=== PATIENT | male | born 1955 | race Caucasian/White ===

== ENCOUNTER 2021-01-14 12:35 | Emergency (ER) | payer OTHER ==
[2021-01-14 12:47] VITALS: BP 156/100; PULSE 83; RESP 20; TEMP 98
[2021-01-14] MEDS ORDERED: LIDOCAINE 1% INJ 10MG/ML (20 ML MDV) SQ ONE (12:56)
[2021-01-14] MEDS ORDERED: BACITRACIN OINT 1 EACH PACKET TOPICAL ONE (13:28)
[2021-01-14] MEDS ORDERED: DIPH,PERTUS(ACELL)TETVAC-LF 0.5 ML VIAL IM ONE (13:28)
--- NOTE | 2021-01-14 13:31 | ED ---
Skin/Abscess/FB HPI - General Chief complaint: Skin/Abscess/Foreign Body Stated complaint: fish hook through finger Time Seen by Provider: 01/14/21 12:56 Source: patient, RN notes reviewed Mode of arrival: ambulatory Limitations: no limitations - History of Present Illness Initial comments: 65-year-old male present emergency Department with chief complaint of fishhook in his right hand third digit. Patient states his tetanus is not up-to-date. Patient offers no complaints. Patient states he was fishing when he caught a fish and states that the patient jumped causing her to go into his finger. - Related Data Allergies Allergy/AdvReac Type Severity Reaction Status Date / Time No Known Allergies Allergy Verified 01/14/21 12:47 Review of Systems ROS Statement: Those systems with pertinent positive or pertinent negative responses have been documented in the HPI. ROS Other: All systems not noted in ROS Statement are negative. Past Medical History Past Medical History: Hypertension History of Any Multi-Drug Resistant Organisms: None Reported Past Surgical History: Hernia Repair Past Psychological History: No Psychological Hx Reported Smoking Status: Current every day smoker Past Alcohol Use History: None Reported Past Drug Use History: None Reported General Exam Limitations: no limitations General appearance: alert, in no apparent distress Head exam: Present: atraumatic, normocephalic, normal inspection Respiratory exam: Present: normal lung sounds bilaterally. Absent: respiratory distress, wheezes, rales, rhonchi, stridor Cardiovascular Exam: Present: regular rate, normal rhythm, normal heart sounds. Absent: systolic murmur, diastolic murmur, rubs, gallop, clicks Extremities exam: Present: other (Right hand third digit there is a noted fishhook in the distal portion) Course Vital Signs 01/14/21 12:43 Temperature 98.0 F Pulse Rate 83 Respiratory 20 Rate Blood Pressure 156/100 O2 Sat by Pulse 96 Oximetry Procedures - Forgein Body Removal Soft Tissue Consent Obtained: verbal consent Site: hand (Right hand third digit) Anesthetic Used: lidocaine 1% Amount (mLs): 3 Foreign Body Suspected: Fish Hook Foreign Body Removed: yes Foreign Body Removal Technique: Instrumentation Complications: pain Patient Tolerated Procedure: well, no complications Medical Decision Making - Medical Decision Making Fish hook was removed no complications. Patient's tetanus is updated. Disposition Clinical Impression: Fish hook injury of finger of right hand Disposition: HOME SELF-CARE Condition: Stable Instructions (If sedation given, give patient instructions): Soft Tissue Foreign Body (ED) Additional Instructions: Please return to the Emergency Department if symptoms worsen or any other concerns. Is patient prescribed a controlled substance at d/c from ED?: No Referrals: Nonstaff,Physician [Primary Care Provider] - 1-2 days Time of Disposition: 13:31
== END 2021-01-14 13:57 | disposition home or self-care (01) ==
LOC: EC 12:35
DX: S61.244A Puncture wound with foreign body of right ring finger without damage to nail, initial encounter (principal); Z23 Encounter for immunization; I10 Essential (primary) hypertension; F17.200 Nicotine dependence, unspecified, uncomplicated; W45.8XXA Other foreign body or object entering through skin, initial encounter; Y93.89 Activity, other specified
CPT/HCPCS: 90471 ×2; 99283 ×2; 10120 ×2; 90715; J2001